=== PATIENT | female | born 1985 | race Caucasian/White ===

== ENCOUNTER 2020-04-14 08:42 | Inpatient (IN) | payer OTHER ==
[2020-04-14 10:57] LABS: INR 0.88 (0.83-1.09); PROTHROMBIN TIME (PATIENT) 10.4 SEC (9.7-13.0)
[2020-04-14 10:58] LABS: BASO % 0.2 % (0-2.0); HEMATOCRIT 36.6 % (32.4-45.2); HEMOGLOBIN 12.1 GM/dL (10.7-15.3); LYMPH % 8.9 % (8-40); MCH 27.8 pg (25.7-33.7); MEAN CELL VOLUME 84.3 fl (80-96); MEAN PLT VOLUME 9.3 fl (7.5-11.1); MONO % 3.7 % (3.8-10.2); NEUT % 87.2 % (42.8-82.8); PLATELET COUNT 206 K/MM3 (134-434); RBC 4.35 M/mm3 (3.60-5.2); RDW 14.7 % (11.6-15.6); WHITE BLOOD COUNT 15.5 K/mm3 (4.0-10.0)
[2020-04-14 11:00] LABS: ACTIVATED PTT 24.6 SECONDS (25.2-36.5)
[2020-04-14 11:13] LABS: BLOOD UREA NITROGEN 10.1 mg/dL (7-18); CALCIUM 8.7 mg/dL (8.5-10.1); CREATININE 0.6 mg/dL (0.55-1.3); POTASSIUM 3.5 mmol/L (3.5-5.1)
[2020-04-14 11:21] VITALS: BMI 17.6
--- NOTE | 2020-04-14 11:57 | PN ---
Progress Note (short form) - Note Progress Note: 34yo P1 @ 39+who presented in early labor, noted to have Cat II tracing with tachycardia and variable decels. Primary OB Dr. Zapata on equipment tech phone with patient discussing in Fijian recommendation for Repeat in light of category II tracing and patient being remote from delivery at 2cm. I was also present at bedside, speaking with patient and her partner regarding the concerning tracing and need for Repeat . Both patient and her partner refused , despite risk of a poor outcoming including NICU admission, ; maternal risk of uterine rupture- bleeding, hysterectomy and maternal . Patient and partner still refused to consent and proceed with RLTCS. Patient did sign a consent for TOLAC, but refused to sign any consent for . With further discussion, she signed a refusal of care (for the recommended ) form, though in [place]an, with a section translated by me into Fijian; both she and her partner read the statement, expressed understanding agreed to sign the form in [place]an the addition of the Fijian comments. Isha Valles MD
[2020-04-14] MEDS ORDERED: BUTORPHANOL TARTRATE 1 MG/ML VIAL IVPB ONE ×2 (12:33→13:50)
[2020-04-14] MEDS ORDERED: BUTORPHANOL TARTRATE 1 MG/ML VIAL ONE ×4 (12:33→13:35)
[2020-04-14] MEDS ORDERED: PROMETHAZINE HCL 25 MG/1 ML VIAL IVPB ONE ×2 (12:33→13:50)
[2020-04-14] MEDS ORDERED: PROMETHAZINE HCL 25 MG/1 ML VIAL ONE ×2 (12:33→13:35)
--- NOTE | 2020-04-14 12:33 | HP ---
Past Medical History - Primary Care Physician PCP:: Alysia Edward - Admission Chief Complaint: Lower abdominal pain History of Present Illness: 34 yo , DEZ 04/19/20, EGA 39 weeks 2 days, was scheduled for delivery on 04/15/20, but presented in labor and declined delivery History Source: Patient Limitations to Obtaining History: No Limitations - Past Medical History ...: 3 ...Para: 1 ...Term: 1 ...: 0 ...Spon : 1 ...Induced : 0 ...Living Children: 0 ...Multiple Gestation: 0 ...LMP: 07/14/20 ... Weeks Gestation by Dates: 39.2 ...EDC by Dates: 04/19/20 ...EDC by Sono: 04/19/20 Endocrine: Yes: Diabetes Mellitus - Past Surgical History Past Surgical History: Yes: Hx Myomectomy: No Hx Transabdominal Cerclage: No - Smoking History Smoking history: Never smoked Have you smoked in the past 12 months: No - Alcohol/Substance Use Hx Alcohol Use: No - Social History Usual Living Arrangement: Yes: With Spouse Do you think of yourself as: Straight/Heterosexual History of Recent Travel: No Home Medications - Allergies Allergies/Adverse Reactions: Allergies Allergy/AdvReac Type Severity Reaction Status Date / Time No Known Allergies Allergy Verified 04/14/20 09:58 - Home Medications Home Medications: Ambulatory Orders Pnv No.95/Ferrous Fum/Folic AC [ Vitamin Tablet] 1 each PO DAILY 04/14/20 Family Medical History Family History: Denies Review of Systems - Review of Systems Constitutional: reports: No Symptoms Eyes: reports: No Symptoms HENT: reports: No Symptoms Neck: reports: No Symptoms Cardiovascular: reports: No Symptoms Respiratory: reports: No Symptoms Gastrointestinal: reports: No Symptoms Genitourinary: reports: No Symptoms Breasts: reports: No Symptoms Reported Musculoskeletal: reports: No Symptoms Integumentary: reports: No Symptoms Neurological: reports: No Symptoms Endocrine: reports: No Symptoms Hematology/Lymphatic: reports: No Symptoms Psychiatric: reports: No Symptoms Physical Exam - Maternity Vital Signs: Vital Signs Temperature 98.3 F 04/14/20 08:42 Pulse Rate 79 04/14/20 08:42 Respiratory Rate 18 04/14/20 08:42 Blood Pressure 129/82 04/14/20 08:42 O2 Sat by Pulse Oximetry (%) Constitutional: Yes: Well Nourished Eyes: Yes: WNL HENT: Yes: WNL Neck: Yes: WNL Cardiovascular: Yes: WNL Lungs: Clear to auscultation Breast(s): Yes: WNL - Abdominal Exam/OB Fundal Height: 39 Number of Fetuses: Single Presentation: Vertex Contractions: Yes Regularity: Irregular Intensity: Mild/Mod Monitor Mode: External Heart Rate (range): 170 Heart Rate Location: [facility] Category: II Accelerations: Uniform Decelerations: None - Vaginal Exam/OB Vaginal Bleeding: No Speculum Exam: No Dilatation (cm): 2 Effacement (%): 90 Presentation: Vertex/Position - Physical Exam Musculoskeletal: Yes: WNL Extremities: Yes: WNL Edema: No ...Motor Strength: WNL Psychiatric: Yes: WNL - Labs Lab Results: CBC, BMP 04/14/20 10:20 04/14/20 10:20 Hemorrhage Risk Assessment - Risk Factors Medium Risk Factors: Yes: None High Risk Factors: Yes: None Risk Score: 1 Risk Level: Medium Risk Problem List - Problems (1) 39 weeks gestation of Code(s): Z3A.39 - 39 WEEKS GESTATION OF (2) Previous section Code(s): Z98.891 - HISTORY OF UTERINE SCAR FROM PREVIOUS SURGERY (3) Gestational diabetes mellitus Code(s): O24.419 - GESTATIONAL DIABETES MELLITUS IN , UNSP CONTROL Qualifiers: Gestational diabetes mellitus control: diet-controlled Assessment/Plan Full term gestation in labor with prior delivery. heart status is category 2( tachycardia) Prior operation was done in [facility] and no operative noted to confirm uterine incision. Patient declined delivery after exhaustive counseling with agate setter. Risks, benefits, complications and alternatives explained to patient and she verbalizes understanding She endorsed refusal of treatment form and wants vaginal after delivery.
[2020-04-14] MEDS ORDERED: ELECTROLYTE-148 SOLN 1,000 ML IV SCH ×2 (13:25→14:25)
--- NOTE | 2020-04-14 14:13 | PN ---
Progress Note (short form) - Note Progress Note: Full term gestation on vaginal after delivery VSS, afebrile EFM - Baseline 140/min, variability fair, accelerations, no decelerations Tocos q 5min, Pelvic - 4cm/100%/-1/vertex. No membranes detected. Plan - Vaginal after delivery in labor Probably ruptured at 6.00 am today. Patient with a history of leaking a large amount of fluid. Anticipate vaginal delivery. * * Problem List - Problems (1) 39 weeks gestation of Code(s): Z3A.39 - 39 WEEKS GESTATION OF (2) Previous section Code(s): Z98.891 - HISTORY OF UTERINE SCAR FROM PREVIOUS SURGERY (3) Gestational diabetes mellitus Code(s): O24.419 - GESTATIONAL DIABETES MELLITUS IN , UNSP CONTROL Qualifiers: Gestational diabetes mellitus control: diet-controlled
--- NOTE | 2020-04-14 18:12 | CON.PSY ---
Psychiatry Consult Chief Complaint: 34 year old female at full term seen along with her to evaluate Patients capacity to make decisions at this time. She and her Husaband apparantly are refusing C Section as ther baby sammy showing signs of distress. Thaliaoedalton hada C Section 10 yrs ago with her firsty child.. and Rayd were spoken to with NIDIA Narvaez in [place].. They are vehemently opposed to C Section even if baby is in distress. She apparantly had a difficult recovery from the firsty C section.. Patienthas no History of Psych Illness or Substance abuse.. - Previous Psychiatric Treatment Outpatient: None Inpatient: None - Previous Substance Abuse Treatment Outpatient: None Inpatient: None - Current Medications Current Medications: Active Medications Parenteral Electrolytes (Plasma-Lyte 148 -) 1,000 mls @ 125 mls/hr IV ASDIR CATY - Allergies Allergies: Allergies Allergy/AdvReac Type Severity Reaction Status Date / Time No Known Allergies Allergy Verified 04/14/20 09:58 - Current Living Status Usual Living Arrangement: With Spouse - Current Mental Status Evaluation Appearance: Well Groomed Attitude: Cooperative - Affect Affect: Full Range Appropriateness: Appropriate to Content - Mood Mood: Euthymic - Speech/Language Expressive: Coherent - Psychomotor Activity Psychomotor Activity: Normal - Thought Process Thought Process: Intact - Thought Content Hallucinations: Absent Delusions: Absent - Self Perception Self Perception: No Impairment - Cognition Attention: Alert Orientation: Time Memory, Immediate Recall: Intact Memory, Short Term: 3/3 Memory, Remote with Promptin/3 - Concentration Serial Sevens Intact: No Simple Calculations Intact: Yes - Abstraction Proverb Interpretation: Intact Judgement: Minimally Impaired - Insight Insight: Intact - Impulse Control Impulse Control: Good Control - Suicidal Ideation Suicidal Ideation: No - Homicidal Ideation Homicidal Ideation: No Assessment/Plan 1) There is no evidence of any acute Mental Illness. 2) Patient has the functional capacity to make decisions at this time.. 3) Please refer case to Risk Management and Ethics as well. $) who has the priority Mother Or The unborn?/.
--- NOTE | 2020-04-14 18:55 | PN ---
Progress Note (short form) - Note Progress Note: Full term gestation in labor VSS, afebrile EFM - Baseline 140/min, variability fair, acceleration, no decelerations Tocos - irregular Pelvic - 4cm/100%/-1/vertex Plan - Anticipate vaginal delivery. Problem List - Problems (1) 39 weeks gestation of Code(s): Z3A.39 - 39 WEEKS GESTATION OF (2) Previous section Code(s): Z98.891 - HISTORY OF UTERINE SCAR FROM PREVIOUS SURGERY (3) Gestational diabetes mellitus Code(s): O24.419 - GESTATIONAL DIABETES MELLITUS IN , UNSP CONTROL Qualifiers: Gestational diabetes mellitus control: diet-controlled
--- NOTE | 2020-04-14 21:18 | PN ---
Progress Note (short form) - Note Progress Note: Full term gestation on vaginal after delivery VSS, afebrile EFM - Baseline 145/min, moderate variability, acceleration, no deceleration Tococ - q 4 minutes Pelvic - 8cm/100%/0/vertex Plan - Anticipate vaginal after delivery. Problem List - Problems (1) 39 weeks gestation of Code(s): Z3A.39 - 39 WEEKS GESTATION OF (2) Previous section Code(s): Z98.891 - HISTORY OF UTERINE SCAR FROM PREVIOUS SURGERY (3) Gestational diabetes mellitus Code(s): O24.419 - GESTATIONAL DIABETES MELLITUS IN , UNSP CONTROL Qualifiers: Gestational diabetes mellitus control: diet-controlled
[2020-04-14] MEDS ORDERED: LIDOCAINE HCL 1% PRESERVATIVE FREE - 30ML VIAL ONE (21:30)
--- NOTE | 2020-04-14 23:18 | PN ---
Progress Note (short form) - Note Progress Note: Full term gestation on VSS, afebrile EFM - Baseline 160/min, variability fair, accelerations, no decelerations Tocos q4 Pelvic - Anterior lip/100%/0 Plan - Anticipate vaginal delivery. Problem List - Problems (1) 39 weeks gestation of Code(s): Z3A.39 - 39 WEEKS GESTATION OF (2) Previous section Code(s): Z98.891 - HISTORY OF UTERINE SCAR FROM PREVIOUS SURGERY (3) Gestational diabetes mellitus Code(s): O24.419 - GESTATIONAL DIABETES MELLITUS IN , UNSP CONTROL Qualifiers: Gestational diabetes mellitus control: diet-controlled
[2020-04-15] MEDS: OXYTOCIN 20 UNITS in 0.9% NS 20 UNIT/1,000 ML INFUS.BAG IV SCH ×2 (01:45→07:00)
[2020-04-15] MEDS ORDERED: BENZOCAINE 28 GM HEMORRHOIDAL OINTMENT TP PRN (02:55)
[2020-04-15] MEDS ORDERED: ACETAMINOPHEN 325 MG TABLET (FP) PO PRN (02:55)
[2020-04-15] MEDS ORDERED: BENZOCAINE 20% 57 GM BOTTLE TP PRN (02:55)
[2020-04-15] MEDS ORDERED: IBUPROFEN 600 MG TABLET (FP) PO PRN (02:55)
[2020-04-15] MEDS ORDERED: METHYLERGONOVINE MALEATE 0.2 MG/1 ML AMP IM PRN (02:55)
[2020-04-15] MEDS ORDERED: WITCH HAZEL 50% (TUCKS) 40 PAD/JAR PAD TP PRN (02:55)
--- NOTE | 2020-04-15 04:26 | PN ---
Delivery - Delivery Vaginal Delivery: No Problems, V-Deana Type of Anesthesia: None Episiotomy/Laceration: None EBL (cc): 500 Delivery, Single - Stages of Labor Date 1st Stage Initiatied: 04/14/20 Time 1st Stage Initiated: 06:00 Date 2nd Stage Initiated: 04/15/20 Time 2nd Stage Initiated: 01:30 Date of Delivery: 04/15/20 Time of Delivery: 01:40 Time Placenta Delivered: 01:45 Placenta: Yes: Spontaneous - Condition of Infant Electronic Induction Hardener/Tack Maker Present: No Infant Gender: Female Total Hours ROM (Hrs/Mins): 20 - 1 Minute Total Score: 9 5 Minutes Total Score: 9 - [place] Feeding Plan Initial Plan: Elected not to breastfeed exclusively throughout hospitalization
[2020-04-15 08:28] LABS: POC NITRAZINE NEG
--- NOTE | 2020-04-15 09:22 | PN ---
Post Progress Note - Subjective Subjective: Pt has no c/o, happy VSS afebrile S/P Post Day: 0 Type of Delivery: Vital Signs: Vital Signs Temperature 99.0 F 04/15/20 06:00 Pulse Rate 67 04/15/20 06:00 Respiratory Rate 20 04/15/20 06:00 Blood Pressure 114/71 04/15/20 06:00 O2 Sat by Pulse Oximetry (%) 100 04/15/20 02:00 Breast Exam: Yes: Soft Uterus: Yes: Fundus Firm, Fundus below umbilicus Abdomen/GI: Yes: Abdomen soft Lochia: Yes: Rubra Lochia, amount: Small Extremities: Yes: Calves non-tender Activity: Ambulating - Labs Labs: CBC WBC 15.5 K/mm3 (4.0-10.0) H 04/14/20 10:20 RBC 4.35 M/mm3 (3.60-5.2) 04/14/20 10:20 Hgb 12.1 GM/dL (10.7-15.3) 04/14/20 10:20 Hct 36.6 % (32.4-45.2) 04/14/20 10:20 MCV 84.3 fl (80-96) 04/14/20 10:20 MCH 27.8 pg (25.7-33.7) 04/14/20 10:20 MCHC 33.0 g/dl (32.0-36.0) 04/14/20 10:20 RDW 14.7 % (11.6-15.6) 04/14/20 10:20 Plt Count 206 K/MM3 (134-434) 04/14/20 10:20 MPV 9.3 fl (7.5-11.1) 04/14/20 10:20 Absolute Neuts (auto) 13.5 K/mm3 (1.5-8.0) H 04/14/20 10:20 Neutrophils % 87.2 % (42.8-82.8) H 04/14/20 10:20 Lymphocytes % 8.9 % (8-40) 04/14/20 10:20 Monocytes % 3.7 % (3.8-10.2) L 04/14/20 10:20 Eosinophils % 0.0 % (0-4.5) 04/14/20 10:20 Basophils % 0.2 % (0-2.0) 04/14/20 10:20 Nucleated RBC % 0 % (0-0) 04/14/20 10:20 Assessment/Plan Ambulate
[2020-04-15] MEDS: DOCUSATE SODIUM 100 MG CAPSULE (FP) PO SCH (09:29)
[2020-04-15] MEDS: FERROUS SO4 325 MG TABLET (FP) PO SCH ×2 (09:29→21:12)
[2020-04-15] MEDS: PRENATAL VITAMINS W/ FOLIC ACID TABLET (FP) PO SCH (09:30)
[2020-04-15] MEDS ORDERED: DIPHTH,PERTUSS(ACELL),TET 0.5 ML DISP.SYRIN IM ONE (10:00)
[2020-04-15] MEDS ORDERED: FLU VACC QS2019-20(6MOS UP)/PF 60 MCG/0.5 ML SYRINGE IM ONE (10:00)
[2020-04-15] MEDS ORDERED: FLU VACCINE QUAD 60 MCG/0.5 ML (MDV 19-20) IM ONE (10:00)
[2020-04-16 08:52] LABS: BASO % 0.4 % (0-2.0); EOS % 1.9 % (0-4.5); HEMATOCRIT 28.4 % (32.4-45.2); HEMOGLOBIN 9.3 GM/dL (10.7-15.3); LYMPH % 22.4 % (8-40); MCH 27.9 pg (25.7-33.7); MCHC 32.9 g/dl (32.0-36.0); MEAN CELL VOLUME 84.9 fl (80-96); MEAN PLT VOLUME 9.1 fl (7.5-11.1); MONO % 6.2 % (3.8-10.2); NEUT % 69.1 % (42.8-82.8); PLATELET COUNT 160 K/MM3 (134-434); RBC 3.34 M/mm3 (3.60-5.2); RDW 15.5 % (11.6-15.6); WHITE BLOOD COUNT 11.6 K/mm3 (4.0-10.0)
[2020-04-16] MEDS: DOCUSATE SODIUM 100 MG CAPSULE (FP) PO SCH (09:25)
[2020-04-16] MEDS: FERROUS SO4 325 MG TABLET (FP) PO SCH (09:26)
[2020-04-16] MEDS: PRENATAL VITAMINS W/ FOLIC ACID TABLET (FP) PO SCH (09:26)
[2020-04-16 09:53] VITALS: BP 110/68; PULSE 63; TEMP 97.5
--- NOTE | 2020-04-16 10:03 | DS ---
Physical Exam-MONOTYPIST Vital Signs: Vital Signs Temperature 97.5 F L 04/16/20 08:10 Pulse Rate 63 04/16/20 08:10 Respiratory Rate 18 04/16/20 08:10 Blood Pressure 110/68 04/16/20 08:10 O2 Sat by Pulse Oximetry (%) 100 04/15/20 02:00 Labs: CBC, BMP 04/16/20 08:13 04/14/20 10:20 Delivery - Delivery Vaginal Delivery: No Problems, V-Deana Type of Anesthesia: None Episiotomy/Laceration: None EBL (cc): 500 Delivery, Single - Stages of Labor Date 1st Stage Initiatied: 04/14/20 Time 1st Stage Initiated: 06:00 Date 2nd Stage Initiated: 04/15/20 Time 2nd Stage Initiated: 01:30 Date of Delivery: 04/15/20 Time of Delivery: 01:40 Time Placenta Delivered: 01:45 Placenta: Yes: Spontaneous - Condition of Infant Parking Technician/Band Saw Filer Present: No Gender: Female Weight: 2.92 kg Total Hours ROM (Hrs/Mins): 20 - 1 Minute Total Score: 9 5 Minutes Total Score: 9 - [place] Feeding Plan Initial Plan: Elected not to breastfeed exclusively throughout hospitalization Remarks - Remarks Remarks: pt. without complaints. feels well and requesting to go home today vss - af abd: soft, nt. fundus firm vE: intact. min lochia exT: no calf tenderness b/l a/p ppd 1 s/p pt. doing well asymptomatic anemia stable for discharge on pain meds and hematinics f/u w OB and medical in 2 weeks Discharge Summary Problems reviewed: Yes Reason For Visit: LABOR Current Active Problems 39 weeks gestation of (Acute) Gestational diabetes mellitus (Acute) Previous section (Acute) Procedures: Principal: Hospital Course: pt admitted in labor due to cat 2 tracing, rpt. delivery was recommended, but pt. refused (psych consult and consent obtained). ultimately underwent . PP course uneventful Condition: Good - Instructions Diet, Activity, Other Instructions: regular diet, activity as tolerated, but avoid strenuous activity, heavy lifting or intercourse. pericare Referrals: Alysia Edward MD [Staff Physician] - 2 Weeks (in [facility]. Also pt should make f/u appt w her primary medical doctor/clinic (due to hx gdm) ) Disposition: HOME - Home Medications Comprehensive Discharge Medication List: Ambulatory Orders Ferrous Sulfate 325 mg PO BID #60 tablet 04/16/20 Ibuprofen [Motrin -] 600 mg PO Q6H PRN #40 tablet 04/16/20 Pnv No.95/Ferrous Fum/Folic AC [ Vitamin Tablet] 1 each PO DAILY #30 tablet 04/16/20
[2020-04-16] MEDS ORDERED: SENNOSIDES/DOCUSATE COMBO (SENNA PLUS) TABLET (UD) PO PRN (22:00)
== END 2020-04-16 13:45 | disposition home or self-care (01) | DRG 560 ==
LOC: JLDR 08:42 → J3W 04-15 05:15
PROVIDERS: ADMIT Obstetrics & Gynecology; ATTEND Obstetrics & Gynecology
PROC: 10E0XZZ Delivery of Products of Conception, External Approach (ICD-10-PCS; principal; 2020-04-15)
DX: O36.8330 Maternal care for abnormalities of the fetal heart rate or rhythm, third trimester, not applicable or unspecified (principal); O24.420 Gestational diabetes mellitus in childbirth, diet controlled; O99.013 Anemia complicating pregnancy, third trimester; Z3A.39 39 weeks gestation of pregnancy; O34.211 Maternal care for low transverse scar from previous cesarean delivery; N85.8 Other specified noninflammatory disorders of uterus; Z37.0 Single live birth
CPT/HCPCS: 36415; 36600; 59409; 80048; 82803; 82962; 83986-QW; 85025; 85610; 85730; 86780; 86850; 86900; 86901; 90686; 90715; G0008; U0003